=== PATIENT | male | born 1990 | race African-American/Black ===

== ENCOUNTER 2017-09-16 17:19 | Emergency (ER) | payer OTHER ==
[~2017-09-16] VITALS: Ht 185.4 cm; Wt 86.2 kg
[2017-09-16 17:29] VITALS: BP 151/93
[2017-09-16] MEDS ORDERED: NEOMYCIN-BACITRACIN-POLYM UNITDOSE PKG TOP OINT TOP ONE (18:45)
== END 2017-09-16 19:47 | disposition home or self-care (01) ==
LOC: ER 17:19
DX: S01.511A Laceration without foreign body of lip, initial encounter (principal); X58.XXXA Exposure to other specified factors, initial encounter; Y93.67 Activity, basketball; Y92.89 Other specified places as the place of occurrence of the external cause; Y99.8 Other external cause status
CPT/HCPCS: 12013